=== PATIENT | female | born 1970 | race Caucasian/White ===

== ENCOUNTER 2018-09-08 10:26 | Outpatient (CLI) | payer OTHER ==
--- NOTE | 2018-09-08 12:25 | ULT ---
SONOGRAM RIGHT BREAST LIMITED: History: Right breast mass. Comparison: 02-12-13 FINDINGS: Scattered fibroglandular densities. At the 5:30 o'clock posterior aspect of the right breast a small cystic lesion measures up to 0.6 cm. Stable compared to the prior study. Mammographic findings are al so stable. No new masses. IMPRESSION: BIRADS category 2 - benign findings. Suggest routine mammographic follow up. POS: [facility]
== END 2018-09-08 10:27 | disposition home or self-care (01) ==
LOC: BICMAMMO 10:26
PROVIDERS: ATTEND Family Medicine
DX: R92.2 Inconclusive mammogram (principal); N64.59 Other signs and symptoms in breast; N64.89 Other specified disorders of breast; Z80.3 Family history of malignant neoplasm of breast
CPT/HCPCS: 77066; G0279

== ENCOUNTER 2018-11-19 10:29 | Outpatient (CLI) | payer OTHER ==
--- NOTE | 2018-11-19 12:53 | RAD ---
BARIUM SWALLOW ESOPHAGRAM: HISTORY: Dysphagia. EXPOSURE: 1.6 minutes, 978.9 mGy*^m2. FINDINGS: [employer] 1 VIEW CHEST: Normal cardiac silhouette. Lungs and pleural spaces are clear. No pneumothorax or osseous abnormalities. The patient was administered thick and thin barium. There is no delay in passage. No evidence of st ricture. Visualized mucosal is grossly unremarkable. Limited evaluation of mucosal detail. The patient was administered at 13 mm barium tablet which passes without difficulty. IMPRESSION: Unremarkable cervical and thoracic esophagus. POS: [facility]
== END 2018-11-19 10:30 | disposition home or self-care (01) ==
LOC: RAD 10:29
PROVIDERS: ATTEND Family Medicine
DX: R13.10 Dysphagia, unspecified (principal)
CPT/HCPCS: 74220

== ENCOUNTER 2020-11-13 16:41 | Emergency (ER) | payer OTHER ==
--- NOTE | 2020-11-13 19:38 | RAD ---
RIGHT KNEE 4 VIEWS: Date: 11/13/2020 HISTORY: Knee injury. FINDINGS: No fracture identified. No evidence of joint effusion. IMPRESSION: No acute abnormality. POS: [facility]
== END 2020-11-13 17:57 | disposition home or self-care (01) ==
LOC: ERS 16:41
DX: S83.8X1A Sprain of other specified parts of right knee, initial encounter (principal); W01.0XXA Fall on same level from slipping, tripping and stumbling without subsequent striking against object, initial encounter; Z79.899 Other long term (current) drug therapy; I10 Essential (primary) hypertension; F17.200 Nicotine dependence, unspecified, uncomplicated